=== PATIENT | female | born 1965 | race Caucasian/White ===

== ENCOUNTER 2019-08-29 19:22 | Inpatient (IN) ==
[2019-08-29] MEDS ORDERED: *HR* FentaNYL (PF) 100 MCG/2 ML VIAL IVP ONE (19:46)
[2019-08-29] MEDS ORDERED: *HR* HYDROmorphone (PF) 1 MG/ML SYRINGE IM ONE (21:31)
[2019-08-29] MEDS ORDERED: *HR* HYDROmorphone (PF) 1 MG/ML SYRINGE IVP ONE ×2 (21:45→23:18)
[2019-08-29 21:57] LABS: Basophils % 0.5 %
[2019-08-29 21:59] LABS: Eosinophils % 0.5 %; Hematocrit 43.2 % (35.3-44.9); Hemoglobin 14.9 g/dL (11.5-15.4); Immature Granulocytes % 0.4 % (0-4); Immature Platelets 6.4 % (1.1-6.1); Lymphocytes # 1.7 K/mcL (0.6-4.6); Lymphocytes % 30.5 %; Mean Corpuscular HGB Conc 34.5 g/dL (31.6-35.5); Mean Corpuscular Hemoglobin 34.4 pg (28.0-33.3); Mean Corpuscular Volume 99.8 fL (83.0-100.0); Mean Platelet Volume 10.8 fL (9.4-12.4); Monocytes # 0.5 K/mcL (0.0-1.3); Monocytes % 8.9 %; Neutrophils # 3.3 K/mcL (1.6-8.9); Red Blood Count 4.33 M/mcL (3.82-4.97); Red Cell Distribution Width 13.2 % (11.5-14.5); Segmented Neutrophils % 59.2 %; White Blood Count 5.6 K/mcL (4.3-11.1)
[2019-08-29 22:15] LABS: Alanine Aminotransferase 75 Units/L (7-52); Albumin 3.4 g/dL (3.5-5.7); Albumin/Globulin Ratio 0.7 (1.1-2.2); Alkaline Phosphatase 103 Units/L (34-104); Aspartate Amino Transferase 99 Units/L (13-39); BUN/Creatinine Ratio 13 (6-26); Bilirubin,Total 1.2 mg/dL (0.3-1.0); Blood Urea Nitrogen 6 mg/dL (6-20); Calcium 8.6 mg/dL (8.6-10.3); Carbon Dioxide 20 mEq/L (23-29); Chloride 104 mEq/L (98-107); Globulin 4.6 g/dL (2.4-3.5); Glucose 106 mg/dL (70-105); Osmolality,Calculated 272 (280-300); Potassium 3.9 mEq/L (3.5-5.1); Sodium 132 mEq/L (136-145); eGFR For African Americans > 60 (> 60); eGFR For Non-African Americans > 60 (> 60)
[2019-08-29] MEDS ORDERED: Isovue-370 500 ML BOTTLE IVP ONE (22:18)
[2019-08-29 22:29] LABS: Platelet Count 50 K/mcL (140-400); Platelet Estimate Decreased (Normal)
[2019-08-29] MEDS ORDERED: *HR* HYDROcodone/Acet 5/325 mg TABLET PO PRN (23:56)
[2019-08-29] MEDS ORDERED: Naloxone 0.4 MG/ML INJ IVP PRN (23:56)
[2019-08-29] MEDS ORDERED: Mag Hydrox/Al Hydrox/Simeth 30 ML UDC PO PRN (23:56)
[2019-08-30] MEDS ORDERED: Ondansetron 4 MG/2 ML VIAL IVP ONE (00:13)
[2019-08-30] MEDS ORDERED: *HR* LORazepam 0.5 MG TABLET PO PRN (00:56)
[2019-08-30] MEDS ORDERED: Benzonatate 100 MG CAPSULE PO PRN (00:57)
[2019-08-30] MEDS ORDERED: Albuterol 2.5 MG/3 ML NEBULIZER IH PRN (00:57)
[2019-08-30] MEDS: Methocarbamol 500 MG TABLET PO PRN ×2 (01:38→21:56)
[2019-08-30] MEDS ORDERED: *HR* OxyCODONE Immed Rel 5 MG TABLET PO PRN ×3 (01:45→10:54)
[2019-08-30 02:47] LABS: Red Cell Distribution Width 13.2 % (11.5-14.5)
[2019-08-30 02:49] LABS: Basophils # 0.1 K/mcL (0.0-0.2); Basophils % 0.7 %; Eosinophils # 0.1 K/mcL (0.0-0.6); Eosinophils % 1.6 %; Hematocrit 42.5 % (35.3-44.9); Hemoglobin 14.5 g/dL (11.5-15.4); Immature Granulocytes % 0.1 % (0-4); Immature Platelets 5.6 % (1.1-6.1); Mean Corpuscular HGB Conc 34.1 g/dL (31.6-35.5); Mean Corpuscular Hemoglobin 33.9 pg (28.0-33.3); Mean Corpuscular Volume 99.3 fL (83.0-100.0); Monocytes # 0.9 K/mcL (0.0-1.3); Monocytes % 12.1 %; Neutrophils # 3.4 K/mcL (1.6-8.9); Red Blood Count 4.28 M/mcL (3.82-4.97); Segmented Neutrophils % 45.5 %; White Blood Count 7.4 K/mcL (4.3-11.1)
[2019-08-30 02:53] LABS: Hepatitis B Surface Antigen Nonreactive (Nonreactive)
[2019-08-30 02:59] LABS: Alanine Aminotransferase 72 Units/L (7-52); Albumin 3.4 g/dL (3.5-5.7); Albumin/Globulin Ratio 0.7 (1.1-2.2); Alkaline Phosphatase 96 Units/L (34-104); Aspartate Amino Transferase 95 Units/L (13-39); BUN/Creatinine Ratio 14 (6-26); Bilirubin,Total 1.5 mg/dL (0.3-1.0); Blood Urea Nitrogen 6 mg/dL (6-20); Calcium 8.6 mg/dL (8.6-10.3); Carbon Dioxide 22 mEq/L (23-29); Chloride 103 mEq/L (98-107); Globulin 4.6 g/dL (2.4-3.5); Glucose 102 mg/dL (70-105); Osmolality,Calculated 270 (280-300); Potassium 3.9 mEq/L (3.5-5.1); Sodium 131 mEq/L (136-145); eGFR For African Americans > 60 (> 60); eGFR For Non-African Americans > 60 (> 60)
[2019-08-30 03:03] LABS: INR 1.3; Prothrombin Time 15.3 Seconds (9.4-12.1)
[2019-08-30 03:09] LABS: Platelet Count 56 K/mcL (140-400)
[2019-08-30] MEDS ORDERED: *HR* HYDROmorphone (PF) 1 MG/ML SYRINGE IVP ONE ×3 (03:20→22:55)
[2019-08-30 03:22] LABS: Hepatitis B Core IgM Nonreactive (Nonreactive)
[2019-08-30 03:24] LABS: Hepatitis A Antibody IgM Nonreactive (Nonreactive)
[2019-08-30 03:27] LABS: Adenovirus Not Detected (Not Detect); Bordetella Pertussis Not Detected (Not Detect); Chlamydophila pneumoniae Not Detected (Not Detect); Coronavirus 229E Not Detected (Not Detect); Coronavirus HKU1 Not Detected (Not Detect); Coronavirus NL63 Not Detected (Not Detect); Coronavirus OC43 Not Detected (Not Detect); Human Metapneumovirus Not Detected (Not Detect); Human Rhinovirus/Enterovirus Not Detected (Not Detect); Influenza A Subtype 2009 H1 Not Detected (Not Detect); Influenza B Not Detected (Not Detect); Mycoplasma pneumoniae Not Detected (Not Detect); Parainfluenza Virus 1 Not Detected (Not Detect); Parainfluenza Virus 2 Not Detected (Not Detect); Parainfluenza Virus 3 Not Detected (Not Detect); Parainfluenza Virus 4 Not Detected (Not Detect); Respiratory Syncytial Virus Not Detected (Not Detect)
[2019-08-30] MEDS: Ondansetron 4 MG/2 ML VIAL IVP PRN ×2 (03:31→15:55)
[2019-08-30] MEDS ORDERED: *HR* HYDROmorphone (PF) 1 MG/ML SYRINGE IVP PRN (03:51)
[2019-08-30] MEDS ORDERED: *HR* LORazepam 2 MG/ML VIAL IVP PRN ×2 (03:57)
[2019-08-30] MEDS ORDERED: *HR* Heparin 5,000 UNIT/ML VIAL SQ SCH (06:00)
[2019-08-30] MEDS: Folic Acid 1 MG TABLET PO SCH (08:52)
[2019-08-30] MEDS: Thiamine (B-1) 100 MG TABLET PO SCH (08:52)
[2019-08-30] MEDS: Nicotine 14 MG PATCH.TD24 TD SCH ×2 (08:52→20:08)
[2019-08-30] MEDS ORDERED: Gadolinium Contrast Agent (WT Based) IV PRN (10:27)
[2019-08-30] MEDS: *HR* OxyCODONE Immed Rel 5 MG TABLET PO PRN ×3 (11:01→20:02)
[2019-08-30 13:49] LABS: Hepatitis C Virus Antibody Reactive (Nonreactive)
[2019-08-30 19:24] LABS: Bilirubin,Urine Negative (Negative); Blood,Urine Small (Negative); Clarity,Urine Clear (Clear); Color,Urine Dark Yellow (Yellow); Glucose,Urine (UA) Normal (Normal); Ketones,Urine Negative (Negative); Leukocyte Esterase,Urine Negative (Negative); Nitrite,Urine Negative (Negative); Protein,Urine Negative (Neg-Trace); Specific Gravity,Urine 1.019 (1.010-1.025); Urobilinogen,Urine Normal (Normal)
[2019-08-30 19:26] LABS: Bacteria,Urine None Seen per hpf (None-Few); Hyaline Casts,Urine None Seen per lpf (None-Few); RBC,Urine 0-3 per hpf (0-3); Squamous Epithelial Cell,Urine Moderate per lpf (None-Few); WBC,Urine 0-3 per hpf (0-3)
[2019-08-31] MEDS: *HR* OxyCODONE Immed Rel 5 MG TABLET PO PRN ×6 (01:03→22:41)
[2019-08-31 05:59] LABS: Hemoglobin 13.7 g/dL (11.5-15.4)
[2019-08-31 06:01] LABS: Basophils % 0.8 %; Eosinophils # 0.1 K/mcL (0.0-0.6); Eosinophils % 2.6 %; Immature Granulocytes % 0.2 % (0-4); Immature Platelets 5.5 % (1.1-6.1); Lymphocytes # 2.4 K/mcL (0.6-4.6); Lymphocytes % 48.3 %; Mean Corpuscular HGB Conc 33.4 g/dL (31.6-35.5); Mean Corpuscular Hemoglobin 34.5 pg (28.0-33.3); Mean Corpuscular Volume 103.3 fL (83.0-100.0); Monocytes # 0.6 K/mcL (0.0-1.3); Monocytes % 11.4 %; Neutrophils # 1.8 K/mcL (1.6-8.9); Red Blood Count 3.97 M/mcL (3.82-4.97); Red Cell Distribution Width 13.2 % (11.5-14.5); Segmented Neutrophils % 36.7 %
[2019-08-31 06:05] LABS: Platelet Count 45 K/mcL (140-400)
[2019-08-31 06:24] LABS: BUN/Creatinine Ratio 18 (6-26); Blood Urea Nitrogen 10 mg/dL (6-20); Calcium 8.4 mg/dL (8.6-10.3); Carbon Dioxide 24 mEq/L (23-29); Chloride 104 mEq/L (98-107); Glucose 90 mg/dL (70-105); Osmolality,Calculated 273 (280-300); Sodium 132 mEq/L (136-145); eGFR For African Americans > 60 (> 60); eGFR For Non-African Americans > 60 (> 60)
[2019-08-31] MEDS: Folic Acid 1 MG TABLET PO SCH (08:36)
[2019-08-31] MEDS: Thiamine (B-1) 100 MG TABLET PO SCH (08:36)
[2019-08-31] MEDS: Methocarbamol 500 MG TABLET PO PRN ×2 (14:09→22:40)
[2019-08-31] MEDS: Nicotine 14 MG PATCH.TD24 TD SCH (20:01)
[2019-09-01 01:45] LABS: Hematocrit 40.4 % (35.3-44.9); Hemoglobin 13.3 g/dL (11.5-15.4); Mean Corpuscular HGB Conc 32.9 g/dL (31.6-35.5); Mean Corpuscular Hemoglobin 33.8 pg (28.0-33.3); Mean Corpuscular Volume 102.5 fL (83.0-100.0); Mean Platelet Volume 11.5 fL (9.4-12.4); Red Blood Count 3.94 M/mcL (3.82-4.97); Red Cell Distribution Width 12.7 % (11.5-14.5); White Blood Count 5.9 K/mcL (4.3-11.1)
[2019-09-01 01:51] LABS: INR 1.4; Prothrombin Time 16.2 Seconds (9.4-12.1)
[2019-09-01 02:00] LABS: Alanine Aminotransferase 68 Units/L (7-52); Albumin 3.1 g/dL (3.5-5.7); Albumin/Globulin Ratio 0.7 (1.1-2.2); Alkaline Phosphatase 93 Units/L (34-104); Aspartate Amino Transferase 97 Units/L (13-39); BUN/Creatinine Ratio 15 (6-26); Bilirubin,Direct 0.1 mg/dL (0.0-0.2); Bilirubin,Indirect 0.8 mg/dL (0.0-1.0); Bilirubin,Total 0.9 mg/dL (0.3-1.0); Blood Urea Nitrogen 9 mg/dL (6-20); C-Reactive Protein < 5 mg/L (Less than 10); Calcium 8.5 mg/dL (8.6-10.3); Carbon Dioxide 21 mEq/L (23-29); Chloride 103 mEq/L (98-107); Globulin 4.4 g/dL (2.4-3.5); Glucose 96 mg/dL (70-105); Osmolality,Calculated 271 (280-300); Potassium 4.1 mEq/L (3.5-5.1); Sodium 131 mEq/L (136-145); Total Protein 7.5 g/dL (6.4-8.9); eGFR For African Americans > 60 (> 60); eGFR For Non-African Americans > 60 (> 60)
[2019-09-01] MEDS: *HR* OxyCODONE Immed Rel 5 MG TABLET PO PRN ×5 (03:11→20:56)
[2019-09-01] MEDS: Nicotine 14 MG PATCH.TD24 TD SCH ×2 (07:43→18:03)
[2019-09-01] MEDS: Thiamine (B-1) 100 MG TABLET PO SCH (07:44)
[2019-09-01] MEDS: Folic Acid 1 MG TABLET PO SCH (07:44)
[2019-09-01] MEDS: Ondansetron 4 MG/2 ML VIAL IVP PRN ×2 (11:06→20:56)
[2019-09-01] MEDS: Methocarbamol 500 MG TABLET PO PRN (19:18)
[2019-09-02] MEDS: *HR* OxyCODONE Immed Rel 5 MG TABLET PO PRN ×2 (00:48→05:19)
[2019-09-02] MEDS: Ondansetron 4 MG/2 ML VIAL IVP PRN (05:26)
[2019-09-02 05:53] LABS: INR 1.4; Prothrombin Time 15.8 Seconds (9.4-12.1)
[2019-09-02 07:30] LABS: Alanine Aminotransferase 70 Units/L (7-52); Albumin 3.1 g/dL (3.5-5.7); Albumin/Globulin Ratio 0.7 (1.1-2.2); Alkaline Phosphatase 91 Units/L (34-104); Aspartate Amino Transferase 94 Units/L (13-39); BUN/Creatinine Ratio 16 (6-26); Bilirubin,Direct 0.4 mg/dL (0.0-0.2); Bilirubin,Indirect 0.8 mg/dL (0.0-1.0); Bilirubin,Total 1.2 mg/dL (0.3-1.0); Blood Urea Nitrogen 9 mg/dL (6-20); Calcium 8.5 mg/dL (8.6-10.3); Carbon Dioxide 23 mEq/L (23-29); Chloride 103 mEq/L (98-107); Globulin 4.4 g/dL (2.4-3.5); Glucose 98 mg/dL (70-105); Osmolality,Calculated 273 (280-300); Sodium 132 mEq/L (136-145); Total Protein 7.5 g/dL (6.4-8.9); eGFR For African Americans > 60 (> 60); eGFR For Non-African Americans > 60 (> 60)
[2019-09-02] MEDS: Nicotine 14 MG PATCH.TD24 TD SCH (07:56)
[2019-09-02] MEDS: Methocarbamol 500 MG TABLET PO PRN (07:57)
[2019-09-02] MEDS: Thiamine (B-1) 100 MG TABLET PO SCH (07:57)
[2019-09-02] MEDS: Folic Acid 1 MG TABLET PO SCH (07:57)
[2019-09-02 12:38] VITALS: BP 106/60
[2019-09-03] MEDS ORDERED: MethylPREDNISolone 40 MG/ML VIAL IVP SCH (09:00)
== END 2019-09-02 14:09 | disposition home health service (06) | DRG 552 ==
LOC: 3BNU 19:22 → EMEROOARM 19:22 → SUATTDRO 23:56 → 3BNU 08-30 00:20
PROVIDERS: ADMIT Internal Medicine; ATTEND Internal Medicine